=== PATIENT | female | born 1970 | race Caucasian/White ===

== ENCOUNTER 2019-06-21 13:48 | Outpatient (CLI) | payer OTHER ==
--- NOTE | 2019-06-21 14:37 | RAD ---
EXAM: 3 views of the left foot HISTORY: Foot pain COMPARISON: None FINDINGS: 3 views of the left foot shows no evidence of acute fracture or dislocation. No soft tissue swelling is seen. No degenerative changes are present. IMPRESSION: No evidence of acute osseous abnormality.
== END 2019-06-21 13:49 | disposition home or self-care (01) ==
LOC: RAD-FRANK 13:48
PROVIDERS: ATTEND Nurse Practitioner Family
DX: M79.672 Pain in left foot (principal)

== ENCOUNTER 2020-11-04 15:18 | Outpatient (CLI) | payer BC ==
--- NOTE | 2020-11-04 16:27 | ULT ---
Ultrasound left chest: 11/04/2020 HISTORY: 50-year-old female with painful, tender palpable lump just inferior to left breast FINDINGS: Images of the region of interest demonstrates no solid or cystic mass, and no architectural distortio n in the subcutaneous tissues superficial to the left anterior chest wall. IMPRESSION: 1. Negative. 2. Consider CT of chest
== END 2020-11-04 15:19 | disposition home or self-care (01) ==
LOC: BICULT 15:18
PROVIDERS: ATTEND Nurse Practitioner Family
DX: N64.4 Mastodynia (principal); M79.89 Other specified soft tissue disorders
CPT/HCPCS: 76999

== ENCOUNTER 2022-04-08 13:14 | Outpatient (CLI) | payer BC | END 2022-04-08 13:15 | disposition home or self-care (01) | LOC: RAD-FRANK 13:14 | PROVIDERS: ATTEND Nurse Practitioner Family | DX: M25.512 Pain in left shoulder (principal); M75.32 Calcific tendinitis of left shoulder ==